=== PATIENT | male | born 1935 | race Caucasian/White ===

== ENCOUNTER 2017-09-07 10:30 | Emergency (ER) | payer MEDICARE ==
[~2017-09-07] VITALS: Ht 175.3 cm; Wt 91.9 kg
[~2017-09-07 10:30] MED LIST: ALBU90OI61 INH; ALEN70 PO; ALENDRONATE TAB 70M; AMOX500 PO; AMYLIPPROD; ASCO500 PO; ASPI325; ASPI81CH PO; ATOR10; AZIT250; BUDE6HFA INH; CEPH250SUA PO; CIPR500 PO; DICL.1SO BOTHEYES; DICL75ER PO; DOC250 PO; DOCU100; DOCU100 PO; ERGO400 PO; FLUSAL5005 INH; FURO20 PO; FURO40; FURO80 PO; HYDACE5 PO; HYDHOMSY PO; K-Dur10 MEQ; LEVFLO500 PO; LISI10 PO; METH1TAB8 PO; Metoprolol Tart25 MG PO; NAPR500; NITR100 PO; Norco 5-325 Ta1 EACH PO; POTA10T PO; Prednisone20 MG PO; SIMV20 PO; SIMV40 PO; SULTRIDS PO; Senna-Gen8.6 MG PO; TAMS.4ER PO; TORSE20 PO; TORSEMIDE; TRAM50 PO
[2017-09-07] MEDS ORDERED: COLCHICINE0.6 MG PO (11:18)
[2017-09-07 11:20] LABS: BASOPHILS ABSOLUTE AUTO 0.01 K/mm3 (0.00-0.23); BASOPHILS PERCENT AUTO 0 % (0-2); EOSINOPHILS ABSOLUTE AUTO 0.03 K/mm3 (0.00-0.68); EOSINOPHILS PERCENT AUTO 0 % (0-6); Hematocrit 39.1 % (37.0-53.0); Hemoglobin 12.6 g/dL (13.5-17.5); IMMATURE GRAN ABSOLUTE AUTO 0.04 K/mm3 (0.00-0.10); IMMATURE GRAN PERCENT AUTO 1 % (0-1); LYMPHOCYTES PERCENT AUTO 8 % (21-46); MONOCYTES ABSOLUTE AUTO 0.66 K/mm3 (0.16-1.47); MONOCYTES PERCENT AUTO 9 % (4-13); Mean Corpuscular HGB Conc 32.2 g/dL (31.5-36.5); Mean Corpuscular Volume 90 fL (80-100); Mean Platelet Volume 12.8 fL (9.1-12.4); NEUTROPHILS ABSOLUTE AUTO 5.96 K/mm3 (1.96-9.15); NEUTROPHILS PERCENT AUTO 82 % (41-73); Platelet Count 165 K/mm3 (150-400); RDW Coefficient Variation 15.1 % (11.7-14.2); Red Blood Cell Count 4.34 M/mm3 (4.30-5.90)
[2017-09-07] MEDS ORDERED: ASCO500 PO (11:29)
[2017-09-07 11:39] LABS: Albumin, Blood 2.7 g/dL (3.4-5.0); Albumin/Globulin Ratio 0.6 (0.8-1.8); Bilirubin, Total 0.8 mg/dL (0.1-1.0); Bun/Creatinine Ratio 17.4 (12.0-20.0); Calcium, Blood 8.7 mg/dL (8.5-10.1); Creatinine, Blood 1.72 mg/dL (0.60-1.20); Globulin, Blood 4.2 g/dL (2.2-4.0); Potassium, Blood 3.4 mmol/L (3.5-5.5); Total Protein, Blood 6.9 g/dL (6.4-8.2); Troponin I 0.166 ng/mL (0.000-0.040)
[2017-09-07 11:50] LABS: Influenza A Negative (NEGATIVE); Influenza B Negative (NEGATIVE)
[2017-09-07] MEDS ORDERED: Albuterol2.5 MG/0.5 INH (12:31)
[2017-09-07] MEDS ORDERED: AEROECLIPSE II1 EACH INH (13:27)
== END 2017-09-07 16:33 | disposition home or self-care (01) ==
LOC: ER 10:30
PROVIDERS: Emergency Medicine
DX: R06.00 Dyspnea, unspecified (principal); C34.90 Malignant neoplasm of unspecified part of unspecified bronchus or lung; I48.91 Unspecified atrial fibrillation; J06.9 Acute upper respiratory infection, unspecified; Z79.899 Other long term (current) drug therapy; Z79.82 Long term (current) use of aspirin; I10 Essential (primary) hypertension; J45.909 Unspecified asthma, uncomplicated; Z87.891 Personal history of nicotine dependence
CPT/HCPCS: 36415; 71045; 80053; 83880; 84484; 85025; 87804; 93005; 93010; 94640; 99283

== ENCOUNTER 2019-03-23 06:42 | Inpatient (IN) | payer MEDICARE, SELFPAY ==
[~2019-03-23] VITALS: Ht 175.3 cm; Wt 76.9 kg
[~2019-03-23 06:42] MED LIST changes: +AEROECLIPSE II1 EACH INH; +Albuterol2.5 MG/0.5 INH; +COLCHICINE0.6 MG PO; +Zocor20 MG PO
[2019-03-23 07:34] LABS: BASOPHILS ABSOLUTE AUTO 0.02 K/mm3 (0.00-0.23); BASOPHILS PERCENT AUTO 0 % (0-2); EOSINOPHILS ABSOLUTE AUTO 0.02 K/mm3 (0.00-0.68); EOSINOPHILS PERCENT AUTO 0 % (0-6); Hematocrit 43.3 % (37.0-53.0); Hemoglobin 14.6 g/dL (13.5-17.5); IMMATURE GRAN ABSOLUTE AUTO 0.06 K/mm3 (0.00-0.10); IMMATURE GRAN PERCENT AUTO 0 % (0-1); LYMPHOCYTES ABSOLUTE AUTO 0.25 K/mm3 (0.84-5.20); LYMPHOCYTES PERCENT AUTO 2 % (21-46); MONOCYTES ABSOLUTE AUTO 0.66 K/mm3 (0.16-1.47); MONOCYTES PERCENT AUTO 5 % (4-13); Mean Corpuscular HGB 30.2 pg (26.0-34.0); Mean Corpuscular HGB Conc 33.7 g/dL (31.5-36.5); Mean Corpuscular Volume 90 fL (80-100); Mean Platelet Volume 12.8 fL (9.1-12.4); NEUTROPHILS ABSOLUTE AUTO 12.42 K/mm3 (1.96-9.15); NEUTROPHILS PERCENT AUTO 93 % (41-73); Platelet Count 155 K/mm3 (150-400); RDW Coefficient Variation 15.2 % (11.7-14.2); RDW Standard Deviation 49.7 fL (35.1-46.3); Red Blood Cell Count 4.83 M/mm3 (4.30-5.90); White Blood Cell Count 13.43 K/mm3 (4.00-11.30)
[2019-03-23 07:51] LABS: Albumin, Blood 3.3 g/dL (3.4-5.0); Albumin/Globulin Ratio 0.7 (0.8-1.8); Bilirubin, Total 1.3 mg/dL (0.1-1.0); Bun/Creatinine Ratio 41.8 (12.0-20.0); Calcium, Blood 9.9 mg/dL (8.5-10.1); Creatinine, Blood 2.01 mg/dL (0.60-1.20); Potassium, Blood 3.3 mmol/L (3.5-5.5); Total Protein, Blood 8.3 g/dL (6.4-8.2)
[2019-03-23 09:55] LABS: Source, Urine Urostomy Bag
[2019-03-23 10:04] LABS: Bilirubin, Urine Neg (Neg); Blood, Urine 1+ (Neg); Glucose Qualitative, Urine Neg (Neg); Ketones, Urine Neg (Neg); Leukocyte Esterase, Urine 3+ (Neg); Nitrite, Urine Pos (Neg); Protein, Urine Neg (Neg); Urobilinogen, Urine NORM (Normal)
[2019-03-23 10:15] LABS: Appearance, Urine Hazy (Clear); Color, Urine Yellow (P-Yellow)
[2019-03-23 10:18] LABS: Bacteria Many /hpf; Red Blood Cells, Urine 0-2 /hpf (0-2); Squamous Epithelial Cells Rare /hpf (Few)
[2019-03-23 10:20] LABS: Triple Phosphate Crystals Many /hpf
[2019-03-23 10:23] LABS: Amorphous Light (0-Heavy)
[2019-03-23] MEDS ORDERED: METO5 PO (13:02)
--- NOTE | 2019-03-23 23:27 | NUR ---
PT C/O NAUSEA. GREEN/BILE EMESIS OF 300ML AT START OF SHIFT. ORDER TO INSERT NG TUBE PER HOSPITALIST ANA. UNSUCCESSFUL INSERT AT APPROX 2215. PT REFUSING ADDITIONAL ATTEMPTS. NEW ORDER FOR PHENERGAN. PT REPORTS TO BE FEELING BETTER AT THIS TIME. WILL MEDICATE PRN.
[2019-03-24 04:44] LABS: BASOPHILS ABSOLUTE AUTO 0.01 K/mm3 (0.00-0.23); BASOPHILS PERCENT AUTO 0 % (0-2); EOSINOPHILS ABSOLUTE AUTO 0.01 K/mm3 (0.00-0.68); EOSINOPHILS PERCENT AUTO 0 % (0-6); Hematocrit 40.5 % (37.0-53.0); Hemoglobin 13.5 g/dL (13.5-17.5); IMMATURE GRAN ABSOLUTE AUTO 0.01 K/mm3 (0.00-0.10); IMMATURE GRAN PERCENT AUTO 0 % (0-1); LYMPHOCYTES ABSOLUTE AUTO 0.15 K/mm3 (0.84-5.20); LYMPHOCYTES PERCENT AUTO 4 % (21-46); MONOCYTES ABSOLUTE AUTO 0.41 K/mm3 (0.16-1.47); MONOCYTES PERCENT AUTO 10 % (4-13); Mean Corpuscular HGB 30.6 pg (26.0-34.0); Mean Corpuscular HGB Conc 33.3 g/dL (31.5-36.5); Mean Corpuscular Volume 92 fL (80-100); Mean Platelet Volume 12.4 fL (9.1-12.4); NEUTROPHILS ABSOLUTE AUTO 3.53 K/mm3 (1.96-9.15); NEUTROPHILS PERCENT AUTO 86 % (41-73); Platelet Count 114 K/mm3 (150-400); RDW Coefficient Variation 15.5 % (11.7-14.2); RDW Standard Deviation 51.1 fL (35.1-46.3); Red Blood Cell Count 4.41 M/mm3 (4.30-5.90); White Blood Cell Count 4.12 K/mm3 (4.00-11.30)
[2019-03-24 05:13] LABS: Bun/Creatinine Ratio 48.5 (12.0-20.0); Calcium, Blood 9.3 mg/dL (8.5-10.1); Creatinine, Blood 1.65 mg/dL (0.60-1.20); Potassium, Blood 2.9 mmol/L (3.5-5.5)
--- NOTE | 2019-03-24 05:46 | NUR ---
SHIFT SUMMARY: PT A&O X4. VS WNL T/O SHIFT. PT COMPLAINING OF N/V IN BEGINNING OF SHIFT. GIVEN ZOFRAN PER EMAR WHICH WAS NOT EFFECTIVE. EMESIS X1 WITH 300ML OUTPUT. ORDER TO PLACE NG TUBE, HOWEVER UNSUCCESSFUL. NO ORDER FOR PHENERGAN. PT MEDICATED WITH PHENERGAN THIS MORNING AND IS RESTING COMFORTABLY AT THIS TIME. PT DENYING PAIN T/O SHIFT. ABD IS SOFT WITH MILD DISTENTION. PT DENIES PASSING GAS. UROSTOMY BAG EMPTIED THROUGHOUT SHIFT. NPO WITH FLUIDS INFUSING.
--- NOTE | 2019-03-24 08:29 | NUR ---
DR MACIEL HERE TO SEE PT RECENTLY, DISCUSSED LABS AND MEDICATIONS. SEE ORDERS/EMAR. IVF PER ORDER 150/HR. PT REPORTS NOT PASSING GAS BUT THAT HE IS NOT NAUSEOUS AT THIS TIME. DENIES PAIN. DENIES CP. REPORTS SOB NORMAL FOR PT.
--- NOTE | 2019-03-24 09:04 | NUR ---
SLIGHT REDNESS TO R HEEL, NO B/D NOTED. HEEL PROTECTORS PLACED. PT WITH VERY DRY/FLAKY SKIN TO BLE-SHINS/FEET. PT HAS OWN TEDS THAT HE WHERE'S, NEW ONE'S OF OUR'S PLACED PER PT REQ. PT PASSING GAS AFTER SITTING TO SIDE OF BED. THERAPY HERE TO WORK WITH PT.
--- NOTE | 2019-03-24 10:44 | NUR ---
DR MARTIN HERE RECENTLY, REPORTS PT MAY HAVE C.L..
--- NOTE | 2019-03-24 19:21 | NUR ---
SHIFT SUMMARY PT TOLERATING C.L. DIET. PT HAVING OUTPUT OUT UROSTOMY. PT PASSING GAS, NO BM YET. PT BEEN DENYING ABD PAIN. PT IV K+ INFUSED CONCURRENTLY WITH OTHER IVF. PT BEEN UP TO CHAIR, WORKED WITH THERAPY. FAMILY IN/OUT OF ROOM. PT USING CALL LIGHT APPR.
[2019-03-25 04:05] LABS: Bun/Creatinine Ratio 46.6 (12.0-20.0); Calcium, Blood 8.2 mg/dL (8.5-10.1); Creatinine, Blood 1.46 mg/dL (0.60-1.20); Potassium, Blood 3.1 mmol/L (3.5-5.5)
--- NOTE | 2019-03-25 04:38 | NUR ---
SHIFT SUMMARY: PT RESTING MOST OF SHIFT. DENIES N/V AND PAIN. REFUSED SCHED HEPARIN. SCDS AND RUMA HOSE ON. PT GINGER CLEAR LIQ DIET. SALINE LOCKED. PT REPORTS PASSING FLATUS. ACTIVE BT IN ALL QUADRANTS. UROSTOMY DRAINING YELLOW URINE. SEDIMENT AND FOUL ODOR TO URINE NOTED.
--- NOTE | 2019-03-25 14:04 | NUR ---
PATIENT REPORTS INCREASED PAIN WITH K RIDER INFUSING, SLOWED RATE OF INFUSION AND PATIENT REPORTS NO DECREASE IN PAIN. IV INFUSION STOPPED. SPOKE WITH DR MACIEL AND NEW ORDERS RECEIVED
[2019-03-25 14:48] LABS: Bun/Creatinine Ratio 40.9 (12.0-20.0); Calcium, Blood 8.7 mg/dL (8.5-10.1); Creatinine, Blood 1.49 mg/dL (0.60-1.20); Potassium, Blood 3.9 mmol/L (3.5-5.5)
--- NOTE | 2019-03-25 17:47 | NUR ---
SUMMARY PATIENT DENIES ABD PAIN OR NAUSEA. TOLERATING FOOD AND FLUIDS PO. UROSTOMY OUTPUT WITH LESS SEDIMENT THAN HAD THIS AM. PATIENT STANDBY ASSIST OUT OF BED- NEEDS REMINDED TO USE WALKER WHEN OOB. PATIENT HOPEING TO BE DISCHARGED IN AM
--- NOTE | 2019-03-25 18:07 | NUR ---
Initial Visit: Palliative Care Consult for Advanced Care Planning. Pt is sitting on edge on bed eating his dinner. Pt denies pain and dyspnea at this time. Pt's and daughter present during visit. Engaged in therapeutic discussion regarding current POLST on file. Current POLST reads DNR, Limited Treatment, and No Tube Feeding. Pt reports he does want CPR. Educated Pt and family on life sustaining measures including risk factors. Gave family new POLST and AD to complete. Family reports they will discuss with Pt when he is home. Ended visit to allow Pt to eat his dinner. Pt and family reports no concerns at this time. Palliative Care will remain available.
--- NOTE | 2019-03-26 01:55 | NUR ---
83 year old Male with bowel obstruction tolerated gen diet and had a large BM this AM. Denies nausea or abd pain. Urostomy patent large amts of urine out. PT able to ambulate to bathroom and at baseline oxygen use. SOB with exertion. Hoping to dc home CARI.
[2019-03-26 04:14] LABS: Bun/Creatinine Ratio 41.7 (12.0-20.0); Calcium, Blood 8.5 mg/dL (8.5-10.1); Creatinine, Blood 1.44 mg/dL (0.60-1.20); Magnesium, Blood 1.8 mg/dL (1.6-2.4); Potassium, Blood 3.9 mmol/L (3.5-5.5)
--- NOTE | 2019-03-26 06:55 | NUR ---
recvd report from previous shift RN Divine, pt awake in bed, a/0 x 4, pleasant/cooperative, [place]. Call light within reach, bed in lowest position, bed rails up x 2. Pt denies any SOB, no pain. pt states he would like to speak with the doctor about restarting his home medications, specifically his diuretics.
--- NOTE | 2019-03-26 10:36 | NUR ---
physical therapy in treating pt
--- NOTE | 2019-03-26 12:40 | NUR ---
peripheral iv removed wnl. pt and provided with discharge instructions, printed education material on small bowel obstruction, follow up instructions. prescription called into [facility] [place]. pt and awaiting their son who will pick them up.
== END 2019-03-26 13:12 | disposition home or self-care (01) | DRG 389 ==
LOC: ER 06:42 → SURS 10:04 → ERHOLD 10:04 → SURS 14:02
PROVIDERS: Emergency Medicine; ADMIT Hospitalist
DX: K56.600 Partial intestinal obstruction, unspecified as to cause (principal); I50.22 Chronic systolic (congestive) heart failure; E87.1 Hypo-osmolality and hyponatremia; I13.0 Hypertensive heart and chronic kidney disease with heart failure and stage 1 through stage 4 chronic kidney disease, or unspecified chronic kidney disease; I25.10 Atherosclerotic heart disease of native coronary artery without angina pectoris; J44.9 Chronic obstructive pulmonary disease, unspecified; E87.6 Hypokalemia; N18.3 Chronic kidney disease, stage 3 (moderate); Z87.891 Personal history of nicotine dependence; Z99.81 Dependence on supplemental oxygen; Z95.1 Presence of aortocoronary bypass graft; Z79.82 Long term (current) use of aspirin; Z79.899 Other long term (current) drug therapy; I25.2 Old myocardial infarction; Z85.51 Personal history of malignant neoplasm of bladder
CPT/HCPCS: 36415; 74176; 80048; 80053; 81001; 83690; 83735; 85025; 87086; 94640; 94760; 96361; 96374; 96375; 97116; 97161; 97165; 97530; 97535; 99285-25; J1644; J2270; J2405; J2550; J3010; J3480; J7030

== ENCOUNTER 2019-07-11 19:52 | Inpatient (IN) | payer MEDICARE, SELFPAY ==
[~2019-07-11] VITALS: Ht 175.3 cm; Wt 79.8 kg
[~2019-07-11 19:52] MED LIST changes: +METO5 PO
[2019-07-11 20:45] LABS: BASOPHILS ABSOLUTE AUTO 0.01 K/mm3 (0.00-0.23); BASOPHILS PERCENT AUTO 0 % (0-2); EOSINOPHILS ABSOLUTE AUTO 0.07 K/mm3 (0.00-0.68); EOSINOPHILS PERCENT AUTO 1 % (0-6); Hematocrit 43.6 % (37.0-53.0); Hemoglobin 14.4 g/dL (13.5-17.5); IMMATURE GRAN ABSOLUTE AUTO 0.02 K/mm3 (0.00-0.10); IMMATURE GRAN PERCENT AUTO 0 % (0-1); LYMPHOCYTES ABSOLUTE AUTO 0.36 K/mm3 (0.84-5.20); LYMPHOCYTES PERCENT AUTO 5 % (21-46); MONOCYTES ABSOLUTE AUTO 0.69 K/mm3 (0.16-1.47); MONOCYTES PERCENT AUTO 10 % (4-13); Mean Corpuscular HGB 29.4 pg (26.0-34.0); Mean Corpuscular Volume 89 fL (80-100); NEUTROPHILS PERCENT AUTO 84 % (41-73); RDW Coefficient Variation 17.6 % (11.7-14.2); RDW Standard Deviation 57.8 fL (35.1-46.3); White Blood Cell Count 7.05 K/mm3 (4.00-11.30)
[2019-07-11 20:47] LABS: Platelet Count 118 K/mm3 (150-400)
[2019-07-11 21:02] LABS: Albumin, Blood 3.1 g/dL (3.4-5.0); Albumin/Globulin Ratio 0.7 (0.8-1.8); Bilirubin, Total 1.5 mg/dL (0.1-1.0); Bun/Creatinine Ratio 36.6 (12.0-20.0); Creatinine, Blood 2.13 mg/dL (0.60-1.20); Globulin, Blood 4.7 g/dL (2.2-4.0); Potassium, Blood 4.5 mmol/L (3.5-5.5); Total Protein, Blood 7.8 g/dL (6.4-8.2)
--- NOTE | 2019-07-12 04:57 | NUR ---
07/12/19 0500 BARBI PAGED PALLIATIVE CARE ABOUT CONSULT.
--- NOTE | 2019-07-12 07:40 | NUR ---
07/12/19 0600 VITALS STABLE. SLEPT WELL LAST NIGHT. LEG DRESSINGS DONE THIS AM PER ORDER. MEDICATED THIS AM AGAIN FOR LEG PAINS. LEGS ELEVATED ON PILLOWS. ENCOURAGED TO TURN THIS AM BUT DECLINED "UNDER LATER".
[2019-07-12 09:02] LABS: BASOPHILS ABSOLUTE AUTO 0.02 K/mm3 (0.00-0.23); BASOPHILS PERCENT AUTO 0 % (0-2); EOSINOPHILS ABSOLUTE AUTO 0.07 K/mm3 (0.00-0.68); EOSINOPHILS PERCENT AUTO 1 % (0-6); Hematocrit 39.6 % (37.0-53.0); Hemoglobin 12.8 g/dL (13.5-17.5); IMMATURE GRAN ABSOLUTE AUTO 0.03 K/mm3 (0.00-0.10); IMMATURE GRAN PERCENT AUTO 1 % (0-1); LYMPHOCYTES ABSOLUTE AUTO 0.43 K/mm3 (0.84-5.20); LYMPHOCYTES PERCENT AUTO 7 % (21-46); MONOCYTES ABSOLUTE AUTO 0.95 K/mm3 (0.16-1.47); MONOCYTES PERCENT AUTO 16 % (4-13); Mean Corpuscular HGB 29.3 pg (26.0-34.0); Mean Corpuscular HGB Conc 32.3 g/dL (31.5-36.5); Mean Corpuscular Volume 91 fL (80-100); NEUTROPHILS ABSOLUTE AUTO 4.29 K/mm3 (1.96-9.15); NEUTROPHILS PERCENT AUTO 74 % (41-73); Platelet Count 92 K/mm3 (150-400); RDW Coefficient Variation 17.6 % (11.7-14.2); RDW Standard Deviation 58.4 fL (35.1-46.3); Red Blood Cell Count 4.37 M/mm3 (4.30-5.90); White Blood Cell Count 5.79 K/mm3 (4.00-11.30)
[2019-07-12 09:07] LABS: Mean Platelet Volume 13.3 fL (9.1-12.4)
[2019-07-12 09:20] LABS: Albumin, Blood 2.6 g/dL (3.4-5.0); Albumin/Globulin Ratio 0.7 (0.8-1.8); Bilirubin, Total 1.2 mg/dL (0.1-1.0); Bun/Creatinine Ratio 38.4 (12.0-20.0); Calcium, Blood 8.5 mg/dL (8.5-10.1); Creatinine, Blood 1.98 mg/dL (0.60-1.20); Globulin, Blood 3.8 g/dL (2.2-4.0); Potassium, Blood 3.1 mmol/L (3.5-5.5); Total Protein, Blood 6.4 g/dL (6.4-8.2)
--- NOTE | 2019-07-12 17:19 | NUR ---
Spiritual Care inital note: Mr. Jacobo is very TANANA, but appeared to enjoy companionship and conversation. He spoke about his adult children with great pride. He has a strong marriage to a mikayla woman. He denies pain, fear, concerns. He is satisfied with his full code status. Prayer provided at bedside. No needs presented. I will remain available.
--- NOTE | 2019-07-12 18:36 | NUR ---
SHIFT SUMMARY PATIENT IN BED WITH VISITORS LARGE PORTION OF SHIFT. APPETITE PRESENT. IV ABX INFUSED WITHOUT ASE NOTED. PATIENT ON O2 NC 2L. NO INDICATIONS OF CARDIAC ISSUES, TELE DC'D. LEGS DRESSED AND THEY APPEAR CDI. VSS DURING SHIFT.
[2019-07-13 04:58] LABS: Hemoglobin 12.7 g/dL (13.5-17.5)
[2019-07-13 05:42] LABS: Magnesium, Blood 1.9 mg/dL (1.6-2.4)
[2019-07-13 05:55] LABS: Albumin, Blood 2.6 g/dL (3.4-5.0); Anion Gap 9 mmol/L (6-16); Blood Urea Nitrogen 72 mg/dL (8-24); CO2, Blood 31 mmol/L (21-32); Calcium, Blood 8.4 mg/dL (8.5-10.1); Chloride, Blood 92 mmol/L (98-108); Glomerular Filtration Rate 34 (60-); Glucose, Blood 104 mg/dL (70-99); Phosphorus, Blood 3.7 mg/dL (2.5-4.9); Potassium, Blood 3.1 mmol/L (3.5-5.5); Sodium, Blood 132 mmol/L (136-145); Uric Acid, Blood 11.5 mg/dL (3.5-7.2)
--- NOTE | 2019-07-13 07:28 | NUR ---
07/13/19 0600 VITALS STABLE. SLEPT WELL THIS SHIFT. TURNED Q 2 HOUR WITH LEGS ELEVATED ON PILLOWS. WOUNDS WERE REDRESSED PER ORDER. MEDICATED ONCE FOR PAIN LAST NIGHT BUT DECLINED MED THIS AM.
--- NOTE | 2019-07-13 17:39 | NUR ---
Spiritual Care note: New POL completed with Mr. Jacobo. He wishes to be a DNR/DNI limited interventions. Awaiting physician's signature. I will remain available.
--- NOTE | 2019-07-13 18:10 | NUR ---
SHIFT SUMMARY PATIENT A/O X 4. POTASSIUM LOW TODAY AND GAVE ONE TIME DOSES ORDERED BY PROVIDER, RECEIVED ORDERS FOR PATIENT VIA TELEPHONE CALL DURING AM MED PASS. TELEMETRY D/C'D TODAY AND APPROVED BY DOCTOR. BILAT LOW EXTREMITIES WOUNDS CLEANED AND REDRESSED, CDI. FLUID RESTRICTION OBSERVED BY PATIENT. UROSTOMY BAG DRAINED AND CDI. PATIENT REPORTED LEFT ARM PAIN WITH MOVEMENT AND MEDICATIONS ADMINISTERED. PT EVAL TODAY AND PATIENT HAD A NEW POLST COMPLETED WHICH NEEDS SIGNED BY PROVIDER.
[2019-07-14 05:05] LABS: Hematocrit 38.5 % (37.0-53.0); Hemoglobin 12.5 g/dL (13.5-17.5); Mean Corpuscular HGB 28.7 pg (26.0-34.0); Mean Corpuscular HGB Conc 32.5 g/dL (31.5-36.5); Mean Corpuscular Volume 89 fL (80-100); Platelet Count 72 K/mm3 (150-400); RDW Coefficient Variation 17.8 % (11.7-14.2); RDW Standard Deviation 57.4 fL (35.1-46.3); Red Blood Cell Count 4.35 M/mm3 (4.30-5.90); White Blood Cell Count 5.84 K/mm3 (4.00-11.30)
[2019-07-14 05:22] LABS: Mean Platelet Volume 13.3 fL (9.1-12.4)
[2019-07-14 05:28] LABS: Alanine Aminotransfer (ALT/SGP 11 U/L (12-78); Albumin, Blood 2.9 g/dL (3.4-5.0); Albumin/Globulin Ratio 0.8 (0.8-1.8); Alk Phos 138 U/L (50-136); Anion Gap 9 mmol/L (6-16); Aspartate Aminotrans (AST/SGOT 32 U/L (12-37); Bilirubin, Direct 0.5 mg/dL (0.0-0.3); Bilirubin, Indirect 0.5 mg/dL (0.1-0.7); Blood Urea Nitrogen 74 mg/dL (8-24); Bun/Creatinine Ratio 38.7 (12.0-20.0); CO2, Blood 27 mmol/L (21-32); Calcium, Blood 8.7 mg/dL (8.5-10.1); Chloride, Blood 94 mmol/L (98-108); Creatinine, Blood 1.91 mg/dL (0.60-1.20); Globulin, Blood 3.7 g/dL (2.2-4.0); Glomerular Filtration Rate 36 (60-); Glucose, Blood 110 mg/dL (70-99); Phosphorus, Blood 2.6 mg/dL (2.5-4.9); Potassium, Blood 3.7 mmol/L (3.5-5.5); Sodium, Blood 130 mmol/L (136-145); Total Protein, Blood 6.6 g/dL (6.4-8.2)
--- NOTE | 2019-07-14 06:18 | NUR ---
SHIFT SUMMARY PT PLEASANT AND COOPERATIVE. AWAKE MUCH OF THE NIGHT DUE TO UROSTOMY FREQUENTLY NEEDING TO BE EMPTIED. YARN TWISTER ATTEMPTED TO HOOK A LARGE DRAINAGE BAG TO UROSTOMY BUT IT WAS UNSUCCESSFUL AND PT ENDED UP COVERED IN URINE. BEDDING CHANGED AND PT CLEANED UP. DRESSING TO RLE CHANGED. NONADHERENT DRESSING, ABD PAD, AND KERLEX USED TO DRESS WOUND. PT AMBULATED THIS EVENING WITH ONE ASSIST TO THE RESTROOM. TELEMETRY UNIT DISCONTINUED BUT REMAINED IN PLACE AT START OF SHIFT. TELE READING AFIB W/ BBB AT 94. TELE REMOVED. PT REMAINED ON 2 L O2 NC WHICH IS PT'S BASELINE. PT DENIED ANY PAIN THIS EVENING. VITAL SIGNS STABLE. NO OTHER ACUTE CHANGES. WILL CONTINUE TO MONITOR.
--- NOTE | 2019-07-14 17:44 | NUR ---
SHIFT SUMMARY PT HAS BEEN UP IN CHAIR FOR ALL MEALS AND AMBULATING TO BATHROOM WITH FWW/GAIT BELT. DRESSINGS TO BLE WERE CHANGED THIS SHIFT AND PT TOLERATED WELL. CONTINUES TO WEAR OXYGEN AT 2L VIA NC. THIS RN REMINDS PT TO LEAVE ON. PT HAS A GOOD APPETITE AND HAS HAD MULTIPLE BM'S THIS SHIFT. FOLLOWS FLUID RESTRICTION. NO ACUTE CHANGES THIS SHIFT. CALL LIGHT IN REACH. WILL CONTINUE TO MONITOR AND REPORT TO ONCOMING RN.
--- NOTE | 2019-07-15 04:50 | NUR ---
SHIFT SUMMARY PT PLEASANT AND COOPERATIVE. VERY SOBOBA. AMBULATES WELL TO THE RESTROOM WITH 1 ASSIST AND FWW. REPORTS PAIN TO BLE'S WHEN AMBULATING. DRESSINGS TO BLE'S REMAINED CLEAN/DRY/INTACT. DID NOT CHANGE THIS EVENING. MINIMAL EDEMA. PT DOES GET SOB W/ EXERTION BUT RECOVERS WELL ONCE BACK IN BED. PT ON 2 L O2 NC WHICH IS PT'S BASELINE DOSE. UROSTOMY TO R ABD. FILLS FREQUENTLY AND REQUIRES EMPTYING. PER REPORT PT HAD MULTIPLE SOFT STOOLS DURING THE DAY YESTERDAY, ONE OF WHICH WAS RATHER EXPLOSIVE, AND PT HAD ONE SOFT MEDIUM STOOL AT SHIFT CHANGE. STOOL SOFTENERS HELD THIS EVENING. VSS. NO ACUTE CHANGES THIS SHIFT.
[2019-07-15 05:00] LABS: Hematocrit 37.5 % (37.0-53.0); Hemoglobin 12.2 g/dL (13.5-17.5)
[2019-07-15 05:14] LABS: Albumin, Blood 2.7 g/dL (3.4-5.0); Anion Gap 10 mmol/L (6-16); Blood Urea Nitrogen 71 mg/dL (8-24); Bun/Creatinine Ratio 40.3 (12.0-20.0); CO2, Blood 26 mmol/L (21-32); Calcium, Blood 8.8 mg/dL (8.5-10.1); Chloride, Blood 95 mmol/L (98-108); Creatinine, Blood 1.76 mg/dL (0.60-1.20); Glomerular Filtration Rate 39 (60-); Glucose, Blood 105 mg/dL (70-99); Magnesium, Blood 1.9 mg/dL (1.6-2.4); Phosphorus, Blood 2.7 mg/dL (2.5-4.9); Potassium, Blood 3.9 mmol/L (3.5-5.5); Sodium, Blood 131 mmol/L (136-145)
--- NOTE | 2019-07-15 16:35 | NUR ---
THE PATIENT HAD AN UNEVENTFUL DAY. NO ACUTE CHANGES TO REPORT ON. VITALS STABLE AND WNL. CONTINUES ON IV ABX WITHOUT S/SX OF ADVERSE REACTIONS NOTED OR REPORTED. DRESSING CHANGED TO RLE PER ORDERS. PATIENT RESTING IN BED AT THIS TIME. CALLS FOR STAFF ASSIST APPROPRIATELY. WILL CONTINUE TO MONITOR AND PROVIDE CARE NEEDED.
--- NOTE | 2019-07-15 17:44 | NUR ---
Met with Louis this afternoon. He is awake, LOWER BRULE but able to hear me. He varied his choice to be a DNR. Dr. Gimenez signed POLST. Spoke with Dr. Gimenez and changed his code status in the EMR to match his wishes on the POLST to DNR. Nursing notified and will watch for order and place DNR band. Pt requesting ice water. Nursing states he is on a fluid restriction, but she will get him some ice water. Copy of POLST faxed to medical records and to [place] POLST registry.
--- NOTE | 2019-07-16 04:30 | NUR ---
SHIFT SUMMARY: PATIENT IS A&O, ABLE TO AMBULATE TO THE BATHROOM WITH WALKER AND SBA OF 1. REPORTS GENERAL DISCOMFORT WHEN AMBULATING, DENIES NEED OF PAIN MEDICATION. PATIENT REFUSES TO KEEP 02 ON WHILE AMBULATION INTO THE BATHROOM. SAT DROPS TO 89% AFTER AMBULATION AND QUICKLY RECOVERS, WITHIN 2 MINUTES, WHEN AT REST. PATIENT IS COMPLIANT WITH FLUID RESTRICTION. BED ALARM IS ON FOR SAFETY.
[2019-07-16 05:09] LABS: Hematocrit 36.9 % (37.0-53.0); Hemoglobin 12.3 g/dL (13.5-17.5)
[2019-07-16 05:35] LABS: Albumin, Blood 2.6 g/dL (3.4-5.0); Anion Gap 9 mmol/L (6-16); Blood Urea Nitrogen 73 mg/dL (8-24); CO2, Blood 26 mmol/L (21-32); Calcium, Blood 8.9 mg/dL (8.5-10.1); Chloride, Blood 96 mmol/L (98-108); Creatinine, Blood 1.66 mg/dL (0.60-1.20); Glomerular Filtration Rate 42 (60-); Glucose, Blood 112 mg/dL (70-99); Phosphorus, Blood 2.6 mg/dL (2.5-4.9); Sodium, Blood 131 mmol/L (136-145)
--- NOTE | 2019-07-16 09:30 | NUR ---
NEW ORDER PLACED BY DR ORTEZ FOR PATIENT TO RECIEVE 40MG IV LASIX. I CALLED DR ORTEZ AT 0930 TO VERIFY THAT HE WANTS IV DOSE ADMINISTERED; PATIENT ALREADY RECIEVED 40MG PO LASIX THIS AM. DR ORTEZ VERIFIED THAT HE DOES WANT THE PATIENT TO RECIEVE THE ADDITIONAL DOSE, PER EMAR.
--- NOTE | 2019-07-16 11:14 | NUR ---
PATIENT'S CAME TO VISIT PATIENT AND HAD A FIT ABOUT THE PATIENT WEARING A "DNR" WRISTBAND. SHE STATED THAT THE PATIENT WANTS TO BE RESUSITATED IF NEEDED. I CALLED DR FIERRO AT 1110 AND INFORMED HER OF THE CONVERSATION AND SHE PROVIDED ORDERS TO CHANGE PATIENT BACK TO FULL CODE PREVIOUSLY WAS.
--- NOTE | 2019-07-16 17:25 | NUR ---
SHIFT SUMMARY THE PATIENT HAS HAD AN UNEVENTFUL DAY. DR FIERRO HAD CONSIDERED DISCHARGING HIM HOME TODAY, HOWEVER CHANGED HER MIND DUE TO EXCESSIVE EDEMA NOTED IN PATIENT. PATIENT RECIEVED A TOTAL OF 120MG OF LASIX TODAY PER ORDERS. DRESSING CHANGES TO RLE AND L FOOT; IT WAS UNDERSTANDABLY TENDER TO THE PATIENT DURING THE DRESSING CHANGES HOWEVER HE TOLERATED WELL CAN BE EXPECTED. THE PATIENT IS CURRENTLY IN HIS ROOM RESTING WITH HIS AT HIS BEDSIDE. WILL CONTINUE TO MONITOR AND PROVIDE CARE NEEDED.
--- NOTE | 2019-07-17 05:19 | NUR ---
PT A/O, COOPERATIVE WITH CARE THIS SHIFT. PT HAS SLEPT THROUGH MUCH OF THIS SHIFT. PT STATED PAIN IN RLE THIS SHIFT AND MEDICATED 2X FOR PAIN. PT STATED SIGNIFICANT IMPROVEMENT OF PAIN WITH MEDICATION THE FIRST TIME, SLEEPING ON RECHECK THE SECOND TIME. PT CURRENTLY RESTING IN BED.
[2019-07-17 05:31] LABS: Hematocrit 35.4 % (37.0-53.0); Hemoglobin 11.6 g/dL (13.5-17.5)
[2019-07-17 06:00] LABS: Albumin, Blood 2.9 g/dL (3.4-5.0); Anion Gap 8 mmol/L (6-16); Blood Urea Nitrogen 76 mg/dL (8-24); Bun/Creatinine Ratio 42.2 (12.0-20.0); CO2, Blood 28 mmol/L (21-32); Chloride, Blood 93 mmol/L (98-108); Glomerular Filtration Rate 38 (60-); Glucose, Blood 100 mg/dL (70-99); Phosphorus, Blood 3.1 mg/dL (2.5-4.9); Potassium, Blood 4.6 mmol/L (3.5-5.5); Sodium, Blood 129 mmol/L (136-145)
[2019-07-17] MEDS ORDERED: ALBU2.5V5 INH (10:14)
[2019-07-17] MEDS ORDERED: ACET325 PO (10:18)
[2019-07-17] MEDS ORDERED: BISA5EC PO (10:19)
[2019-07-17] MEDS ORDERED: CEPH500 PO (10:20)
[2019-07-17] MEDS ORDERED: TRIPLE ANTIBIO1 EAC1 TOP (10:20)
[2019-07-17] MEDS ORDERED: MIRALAX17 GM PO (10:21)
[2019-07-17] MEDS ORDERED: SENN187 PO (10:22)
[2019-07-17] MEDS ORDERED: Aldactone25 MG PO (10:22)
[2019-07-17] MEDS ORDERED: ZINC220 PO (10:23)
[2019-07-17] MEDS ORDERED: Florastor250 MG PO (10:23)
--- NOTE | 2019-07-17 10:41 | NUR ---
DISCHARGE INSTRUCTIONS REVIEWED WITH PATIENT. PRINTED COPY GIVEN TO PATIENT FOR REFERENCE WITH EDUCATIONAL MATERIAL. IV REMOVED. ALL QUESTIONS ANSWERED.
--- NOTE | 2019-07-17 12:50 | NUR ---
PATIENT DISCHARGED HOME WITH AND FAMILY FRIEND AT 1251. PATIENT ASSISTED OUT TO VEHICLE IN WHEELCHAIR BY SPRING COILER.
== END 2019-07-17 12:50 | disposition home health service (06) | DRG 291 ==
LOC: ER 19:52 → MEDS 19:53
PROVIDERS: Internal Medicine; Internal Medicine Nephrology; Nurse Practitioner Acute Care; Physician Assistant; ADMIT Internal Medicine
DX: I13.0 Hypertensive heart and chronic kidney disease with heart failure and stage 1 through stage 4 chronic kidney disease, or unspecified chronic kidney disease (principal); I50.43 Acute on chronic combined systolic (congestive) and diastolic (congestive) heart failure; N17.0 Acute kidney failure with tubular necrosis; J96.11 Chronic respiratory failure with hypoxia; L03.115 Cellulitis of right lower limb; N18.3 Chronic kidney disease, stage 3 (moderate); E87.6 Hypokalemia; J44.9 Chronic obstructive pulmonary disease, unspecified; I25.10 Atherosclerotic heart disease of native coronary artery without angina pectoris; Z86.73 Personal history of transient ischemic attack (TIA), and cerebral infarction without residual deficits; Z85.118 Personal history of other malignant neoplasm of bronchus and lung; E88.09 Other disorders of plasma-protein metabolism, not elsewhere classified; Z99.81 Dependence on supplemental oxygen; I48.91 Unspecified atrial fibrillation
CPT/HCPCS: 36415; 71045; 76770; 80048; 80053; 80069; 80076; 82248; 82533; 83735; 83880; 84100; 84443; 84550; 85014; 85018; 85025; 85027; 93005; 93010; 94640; 94760; 96365; 96366; 96375; 96376; 97110; 97116; 97162; 97530; 99285-25; A9270; A9270-GY; G0378; J0690; J1940; J3480; J7050; P9046